=== PATIENT | female | born 1990 | race Caucasian/White ===

== ENCOUNTER 2019-10-29 11:45 | Outpatient (REF) | payer BC, SELFPAY | END 2019-10-29 12:05 | LOC: LBN 11:45 | PROVIDERS: PCP Family Medicine; Visit Provider Family Medicine | DX: J11.1 Influenza due to unidentified influenza virus with other respiratory manifestations (principal) | CPT/HCPCS: 87449 ==

== ENCOUNTER 2020-01-30 15:47 | Outpatient (REF) | payer BC, SELFPAY ==
--- NOTE | 2020-01-30 14:52 | PAPFT_PTH ---
PATIENT: Ivonne Hough LOC: [facility] U#:[id number] AGE/SX: 29/F ROOM: RE01/30/[address]: Tobin Barron MD : 1990 BED: DIS: 01/30/2020 SPEC #: [id number] RECD: 02/02/20 12:29 STATUS: DORA REQ #: [id number] DONA: 01/30/20 14:[address]: Tobin Barron DEPT: [facility] Cytology RECD BY: Gretel Ontiveros Tissues: 1 - CX/ENDOCX FOR PAP SMEARS Procedures: PAP THIN PREP/UVM Screening Comments: [id number] (UNSATISFACTORY FOR EVALUATION)
== END 2020-01-30 16:07 ==
LOC: LBN 15:47
PROVIDERS: PCP Family Medicine; Visit Provider Family Medicine
DX: N89.8 Other specified noninflammatory disorders of vagina (principal); Z12.4 Encounter for screening for malignant neoplasm of cervix; Z11.51 Encounter for screening for human papillomavirus (HPV); R87.615 Unsatisfactory cytologic smear of cervix
CPT/HCPCS: 88142; 87480; 87510; 87660

== ENCOUNTER 2020-06-12 15:32 | Emergency (ER) | payer BC, SELFPAY ==
[2020-06-12 15:37] VITALS: BP 156/81; PULSE 101; RESP 16; TEMP 36.7; O2SAT 100
--- NOTE | 2020-06-12 15:45 | DI.RAD_ITS ---
EXAM: XR FEMUR RT CLINICAL HISTORY: pain s/p kicking wall. TECHNIQUE: 2D digital imaging was performed. COMPARISON: CR ABD FLAT UPRIGHT PA CHEST from 07/07/2016 FINDINGS: BONES: No acute fracture is present. No bony destructive lesion is seen. Visualized portion of knee a nd hip joints are unremarkable. SOFT TISSUE: There is again seen an IUD in place. There is again seen a surgical clip in the left pe lvis. IMPRESSION: No acute fracture or dislocation. DATA REPOSITORY: RADIATION DOSE DELIVERED:
--- NOTE | 2020-06-12 15:51 | W.ED.GENAD ---
Discharge Plan Disposition Patient Disposition: HOME Condition: Stable Discharge Details Clinical Impression: Pain in right thigh, Muscle spasm Primary Care Provider: Tobin Barron ED Provider: Glenn George Home Meds and New Rx's Prescriptions: New cyclobenzaprine 10 mg tablet 10 mg PO TID PRNQty: 20 RF: 0 Continued epinephrine 0.3 mg/0.3 mL auto-injector 0.3 mg IM DAILY PRN (Reason: anaphylaxis) Qty: 1 RF: 0 ParaGard T 380A 1 EACH intrauterine device 1 ea Intrauterine ONCE Qty: 1 RF: 0 Discharge Instructions Instructions: Muscle Spasm (ED) Additional Instructions: take 1000mg tylenol and 600mg ibuprofen every 6 hours for pain as needed if you need additional relief take 1 cyclobenzaprine (flexeril) and avoid operating heavy machinery and drinking alcohol if you take this medicine if symptoms continue this week follow up with your primary care provider return to the emergency department for severe worsening pain, fevers or if you feel more ill Medical Decision Making 30 yo female comes in with right thigh pain. STates a week ago did more activities than she normally does and strained both thighs and were sore and felt better but today was playing kickball when she accidentally kicked a wall. No head trauma or falls. She states she had suddent anterior right thigh pain that was excruciating. STates pain is improved. HAs no visible or palpable swelling, normal calf size compared to other leg, normal pulses and sensation and full rom of the leg so doubt tendon rupture. Muscles are soft and no findings to suggest compartment syndrome. suspect muscle spasm given how acute onset the pain was and already improving, will obtain xray and give muscle relaxer and reassess. xray negative and she improved with muscle relaxer, ambulating without limp and full rom and still soft muscles. Suspect muscle spasm and will d/c and have her f/u with pcp, return precautions given Differential Diagnosis Differential Diagnosis: muscle spasm, strain, sprain Imaging Data Radiologic Study: Attestation: I personally reviewed and interpreted this imaging study as follows: Imaging: X-Ray Radiologist's impression: IMPRESSION: No acute fracture or dislocation. HPI General Mode of arrival: ambulatory. Date/Time Provider Initiated Documentation: 06/12/20 15:34. Limitations to Documentation: no limitations. Information obtained by: patient. History of Present Illness 30 year old F presents to the emergency department with the chief complaint of right thigh pain, described as moderate, Patient started experiencing this day(s) (1) and it has been other (improving). No relieving factors improve symptom(s), No exacerbating factors reported . Patient did receive the following treatments prior to arrival, none Related Data Home Medications Medication Instructions Recorded Confirmed ParaGard T 380A 1 ea INTRAUTERINE ONCE #1 implant 07/16/16 06/12/20 epinephrine 0.3 mg/0.3 mL 0.3 mg IM DAILY PRN #1 syringe 01/30/20 06/12/20 injection, auto-injector cyclobenzaprine 10 mg PO TID PRN #20 tab 06/12/20 Previous Rx's Medication Instructions Recorded epinephrine 0.3 mg/0.3 mL 0.3 mg IM DAILY PRN #1 syringe 01/30/20 injection, auto-injector cyclobenzaprine 10 mg PO TID PRN #20 tab 06/12/20 Allergies Allergy/AdvReac Type Severity Reaction Status Date / Time venom-honey bee Allergy Severe anaphalactic Verified 06/12/20 15:42 shock Black Flies Allergy Intermediate Swelling Uncoded 06/12/20 15:42 General Stated Complaint: Orthopedic SHYAM: 4 Review of Systems All systems reviewed & are unremarkable except as noted in HPI and below Constitutional Constitutional: Denies chills, Denies fever(s) and Denies weakness Cardiovascular Cardiovascular: Denies chest pain and Denies dyspnea Respiratory Respiratory: Denies cough and Denies dyspnea Gastrointestinal Gastrointestinal: Denies abdominal pain, Denies nausea and Denies vomiting Neurologic Neurologic: Denies weakness [facility] Medical History (Updated 06/12/20 @ 17:06 by Glenn George MD) BMI 40.0-44.9, adult IUD (intrauterine device) in place Mirena IUD removed and ParaGard inserted 07/12/16 in hopes of decreasing recurrent pancreatitis sx. Recurrent acute pancreatitis most recent hospitalization 06/2016. Surgical History (Updated 01/30/20 @ 14:29 by Tobin Barron) BILLARY SPINCTEROTOMY 03/16/17 Cholecystectomy (~2010) Family History Mother No problems noted. Father Personal history of malignant neoplasm BRAIN Sister No problems noted. Brother No problems noted. Brother No problems noted. Brother No problems noted. Grandfather Personal history of malignant neoplasm BLADDER Grandfather No problems noted. Grandmother Diabetes Essential hypertension Depression Heart disease Hyperlipidemia Grandmother No problems noted. Social History Smoking/Tobacco Use Status: Never Alcohol Intake: never Drug use: Daily Substance use type: marijuana Do you feel safe in your relationship?: Yes Exam Const General: no acute distress Orientation: alert HENMT Head: normal to inspection Ears: external ears normal General nose exam: external nose normal Mouth: moist mucous membranes Eyes General: appearance normal, both eyes and all related structures Neck Neck: normal visual inspection Resp Effort & Inspection: normal respiratory effort and able to speak in complete sentences Cardio Rate: regular rate Skin General skin exam: no rashes or lesions noted Neuro General: patient alert and patient oriented x3 Extrem General: normal to inspection, full ROM and capillary refill normal Psych Mental Status: mental status grossly normal Course Vital Signs Vital signs: Vital Signs Temperature 36.7 C 06/12/20 15:37 Pulse 101 H 06/12/20 15:37 Respiratory Rate 16 06/12/20 15:37 Blood Pressure 156/81 H 06/12/20 15:37 Pulse Oximetry 100 06/12/20 15:37 Temperature 36.7 C 06/12/20 15:37 Temperature Source Skin 06/12/20 15:37 Pulse 101 H 06/12/20 15:37 Respiratory Rate 16 06/12/20 15:37 Respiratory Effort Non-Labored 06/12/20 15:37 Blood Pressure 156/81 H 06/12/20 15:37 Blood Pressure Position Sitting 06/12/20 15:37 Pulse Oximetry 100 06/12/20 15:37 Oxygen Delivery Method Room Air 06/12/20 15:37 Oxygen Flow Rate 0 06/12/20 15:37 Pain Level 10 06/12/20 15:45
[2020-06-12] MEDS: Cyclobenzaprine 10 MG TAB PO (16:03)
--- NOTE | 2020-06-12 16:45 | DI.VRAD_ITS ---
PROCEDURE INFORMATION: Exam: XR Right Femur Exam date and time: 06/12/2020 4:33 PM Age: 30 years old Clinical indication: Other: Pain S/P kicking wall TECHNIQUE: Imaging protocol: XR Right femur. Views: 2 views. COMPARISON: No relevant prior studies available. FINDINGS: Tubes, catheters and devices: There is a T-shaped metallic object projecting in pelvis which could reflect intrauterine contraceptive device. Bones/joints: Unremarkable. No acute fracture. Soft tissues: There is a nonspecific linear metallic density on the left side of hemipelvis. IMPRESSION: No acute fracture or dislocation. Dictated and Authenticated by: Mike Atkins MD. Ordering:RICK Elizabeth MD
== END 2020-06-12 17:20 | disposition home or self-care (01) ==
PROVIDERS: Emergency Provider Emergency Medicine; PCP Family Medicine
DX: M79.651 Pain in right thigh (principal); M62.838 Other muscle spasm; W22.01XA Walked into wall, initial encounter
CPT/HCPCS: 73552; 99284

== ENCOUNTER 2022-04-11 11:14 | Outpatient (CLI) | payer BC, SELFPAY ==
[2022-04-11 13:14] LABS: Calculated LDL 69 mg/dL (<100); Cholesterol 129 mg/dL (<200); Glucose 90 mg/dL (74-106); HDL Cholesterol 52 mg/dL (40-60); Triglyceride 44 mg/dL (<150)
== END 2022-04-11 11:15 | disposition home or self-care (01) ==
LOC: LOS 11:14
PROVIDERS: PCP Family Medicine; Referring Provider Family Medicine; Visit Provider Family Medicine
DX: E78.5 Hyperlipidemia, unspecified (principal); R73.9 Hyperglycemia, unspecified
CPT/HCPCS: 36415; 80061; 82947

== ENCOUNTER 2022-04-11 11:54 | Outpatient (REF) | payer BC, SELFPAY ==
--- NOTE | 2022-04-11 11:07 | PAPFT_PTH ---
PATIENT: Ivonne Hough LOC: [facility] U#:[id number] AGE/SX: 31/F ROOM: RE04/11/[address]: Tobin Barron MD : 1990 BED: DIS: 04/11/2022 SPEC #: [id number] RECD: 04/11/22 13:00 STATUS: DORA REQ #: [id number] DONA: 04/11/22 11:[address]: Tobin Barron DEPT: [facility] Cytology RECD BY: Gretel Ontiveros Tissues: 1 - CX/ENDOCX FOR PAP SMEARS Procedures: PAP THIN PREP/[facility]VM Screening HPV DNA PROBE Comments: [id number] (HPV 16 & 18/45)
== END 2022-04-11 11:55 | disposition home or self-care (01) ==
LOC: LBN 11:54
PROVIDERS: PCP Family Medicine; Visit Provider Family Medicine
DX: R87.810 Cervical high risk human papillomavirus (HPV) DNA test positive (principal); Z12.4 Encounter for screening for malignant neoplasm of cervix; Z11.51 Encounter for screening for human papillomavirus (HPV)
CPT/HCPCS: 88142; 87624

== ENCOUNTER 2022-05-03 12:07 | Outpatient (REF) | payer BC, SELFPAY ==
--- NOTE | 2022-05-03 11:45 | ENDO_PTH ---
PATIENT: Ivonne Hough LOC: [facility] U#:[id number] AGE/SX: 32/F ROOM: RE05/03/[address]: Marcie Rausch DO : 1990 BED: DIS: 05/03/2022 SPEC #: [id number] RECD: 05/03/22 13:19 STATUS: DORA REQ #: [id number] DONA: 05/03/22 11:[address]: Marcie Rausch DEPT: Surgical Specimen RECD BY: Gretel Ontiveros ENTERED: 05/03/22 13:19 SP TYPE: Endo OTHR DR: Tobin Barron MD Tissues: 1 - ENDOCERVICAL BX/CURRETTE Procedures: GROSS AND MICRO LEVEL 4 Comments: [id number]
== END 2022-05-03 12:08 | disposition home or self-care (01) ==
LOC: LBN 12:07
PROVIDERS: PCP Family Medicine; Visit Provider Obstetrics & Gynecology
DX: N72 Inflammatory disease of cervix uteri (principal)
CPT/HCPCS: 88305